=== PATIENT | female | born 1940 | race Caucasian/White ===

== ENCOUNTER 2022-04-18 12:45 | Emergency (ER) | payer MEDICARE ==
[~2022-04-18] VITALS: Ht 157.5 cm; Wt 52.2 kg
[2022-04-18 12:49] VITALS: BP_SYST 132
--- NOTE | 2022-04-18 13:25 | NUR ---
MD GALEANO AT BEDSIDE FOR EXAM.
--- NOTE | 2022-04-18 13:40 | NUR ---
COVID-19 ANTIGEN TEST TAKEN AND SENT TO LAB AT 13:20.
--- NOTE | 2022-04-18 14:05 | NUR ---
UPDATE ON PATIENTS CHIEF COMPLAINT, FAMILY AT BEDSIDE STATES MECHANICAL FALL, C/O LEFT RIB PAIN. DENIES KO. NOT RIGHT FLANK PAIN. PT DENIED FALL EARLIER, HAS PERIODS OF CONFUSION.
[2022-04-18 14:25] LABS: WHITE BLOOD COUNT (AUTO) 5.8 K/uL (4.8-10.8)
[2022-04-18 14:33] LABS: BASOPHILS % (AUTO) 0.5 % (0.0-2.0); EOSINOPHILS % (AUTO) 0.7 % (0.0-4.0); HEMATOCRIT 31.9 % (36-48); LYMPHOCYTES # (AUTO) 1.6 K/uL (1.0-5.5); LYMPHOCYTES % (AUTO) 28.2 % (20.5-51.5); MEAN CORPUSCULAR VOLUME 88 fL (79.0-98.0); MONOCYTES # (AUTO) 0.4 K/uL (0.0-1.0); MONOCYTES % (AUTO) 6.6 % (1.7-9.3); NEUTROPHILS # (AUTO) 3.7 K/uL (1.8-7.7); PLATELET COUNT (AUTO) 208 K/uL (130-430); RED BLOOD CELL COUNT(AUTO) 3.63 MIL/uL (4.2-6.2); RED CELL DISTRIBUTION WIDTH 13.7 % (9.0-15.0)
[2022-04-18] MEDS ORDERED: IBUPROFEN 600 MG TABLET PO ONE (14:45)
[2022-04-18] MEDS ORDERED: HYDROcodone/ACETAMIN 5-325 MG TAB (NORCO/ VICODIN) PO ONE (14:45)
[2022-04-18 14:54] LABS: PROTHROMBIN TIME 9.9 SECS (9.5-12.5)
[2022-04-18 15:00] LABS: ANION GAP 7 (5-15); CALCIUM 9.1 mg/dL (8.4-11.0); CHLORIDE 101 mmol/L (98-107); CREATININE 2.04 mg/dL (0.55-1.30); GLUCOSE 207 mg/dL (70-99); POTASSIUM 5.6 mmol/L (3.5-5.1); UREA NITROGEN, BLOOD 46 mg/dL (8-21)
[2022-04-18 15:06] LABS: BILIRUBIN,URINE NEGATIVE (NEGATIVE); BLOOD, URINE NEGATIVE (NEGATIVE); CLARITY/URINE CLEAR (CLEAR); COLOR,URINE YELLOW (YELLOW); GLUCOSE,URINE NEGATIVE (NEGATIVE); KETONES,URINE NEGATIVE (NEGATIVE); NITRITE, URINE NEGATIVE (NEGATIVE); PH,URINE 5.5 (5.0-8.0); PROTEIN URINE NEGATIVE (NEGATIVE); UROBILINOGEN,URINE 0.2 (0.2-1.0)
[2022-04-18 15:14] LABS: ALANINE AMINOTRANSFERASE 21 U/L (12-78); ALBUMIN 3.4 g/dL (3.4-4.8); ASPARTATE AMINOTRANSFERASE 18 U/L (10-37); TOTAL BILIRUBIN 1.1 mg/dL (0.0-1.0)
[2022-04-18 15:16] LABS: LEUKOCYTE ESTERASE ,URINE TRACE (NEGATIVE)
[2022-04-18 15:17] LABS: BACTERIA,URINE MODERATE /HPF (None Seen); MUCUS,URINE None Seen /LPF (None Seen); RBC,URINE NONE SEEN /HPF (0-3)
[2022-04-18] MEDS ORDERED: NACL 0.9% 1,000 ML IV ONE (16:00)
[2022-04-18 16:16] LABS: ACETONE, SERUM NEGATIVE (NEGATIVE)
--- NOTE | 2022-04-18 17:33 | NUR ---
CALLED [facility], SPOKE TO LUPE STANLEY FOR REPORT. BLS ETA 1730, PT AAOX4, VSS, NAD NOTED. ON ROOM AIR. 20G RIGHT FOREARM. ACCEPTING Sean [address] DR[address] NUMBER CALLED WAS . ALL QUESTIONS ANSWERED. WILL CONT TO MONITOR PT UNTIL BLS AMBULANCE ARRIVES.
[2022-04-18 17:44] VITALS: BP_SYST 128
--- NOTE | 2022-04-18 17:44 | NUR ---
BEDSIDE REPORT TO [facility] UN[address]. ALL QUESTIONS ANSWERED. PT VSS. PACKET PROVIDED TO EMS CREW. PT TO [facility]. END OF CARE.
== END 2022-04-18 17:44 | disposition short-term general hospital (02) ==
LOC: SED 12:45
DX: R53.1 Weakness (principal); R07.81 Pleurodynia; E11.9 Type 2 diabetes mellitus without complications; I10 Essential (primary) hypertension; Z79.899 Other long term (current) drug therapy; Z20.822 Contact with and (suspected) exposure to COVID-19
CPT/HCPCS: 99285; 96360; 71045; 87426; 80053; 81000; 82009; 82550; 85025; 85610; 85730; 87040; 87086; 84484; 36415; 93005; 83605; J7030